=== PATIENT | male | born 1970 | race African-American/Black ===

== ENCOUNTER 2017-07-17 15:23 | Observation (INO) | payer BC ==
[2017-07-17] MEDS ORDERED: LIDOCAINE 4%/TETRACAINE 0.5%/EPI 0.18% 5 ML TOPICAL SOLN TOP ONE (16:55)
[2017-07-17] MEDS ORDERED: IBUPROFEN 800 MG TABLET PO ONE (16:55)
[2017-07-17] MEDS ORDERED: ACETAMINOPHEN 325 MG TABLET PO ONE (16:55)
--- NOTE | 2017-07-17 16:57 | ER Document Report ---
HPI - HPI Patient complains to provider of: left arm abscess Onset: Other - 3 days Onset/Duration: Worse Pain Level: 5 Context: 47-year-old male used IV heroin 3 days ago missed the vein and developed an abscess. He tried to cut it himself and no pus came out. No fever or chills. No body aches. No history of MRSA Associated Symptoms: None Relieved by: Denies Similar symptoms previously: No Recently seen / treated by doctor: No - ROS ROS below otherwise negative: Yes Systems Reviewed and Negative: Yes All other systems reviewed and negative Past Medical History - General Information source: Patient - Social History Smoking Status: Current Every Day Smoker Frequency of alcohol use: None Drug Abuse: Cocaine - smokes, Heroin - IV, Marijuana Lives with: Family Family History: Reviewed & Not Pertinent - Medical History Medical History: Negative Past Surgical History: Reports: Hx Orthopedic Surgery - left leg Vertical Provider Document - CONSTITUTIONAL Agree With Documented VS: Yes Exam Limitations: No Limitations - INFECTION CONTROL TRAVEL OUTSIDE OF THE [place] IN LAST 30 DAYS: No - HEENT HEENT: Normocephalic - NECK Neck: Supple - RESPIRATORY Respiratory: Breath Sounds Normal, No Respiratory Distress O2 Sat by Pulse Oximetry: 95 - CARDIOVASCULAR Cardiovascular: Regular Rate, Regular Rhythm - MUSCULOSKELETAL/EXTREMETIES Musculoskeletal/Extremeties: Tender - 7 cm distal volar left upper arm fluctuant abscess with surrounding cellulitis, Edema - NEURO Level of Consciousness: Awake, Alert, Appropriate Motor/Sensory: No Motor Deficit, No Sensory Deficit - DERM Integumentary: Abscess Course - Re-evaluation Re-evalutation: 07/17/17 17:[address] Domingo who looked at the wound and states that the general surgeon should be involved. I have spoken with Dr. Navarro who stated to make the patient n.p.o. and give IV antibiotics and IV fluid and he will come see the patient in the ED. 07/17/17 17:59 dr salinas here, pt admits to smoking cocaine. - Vital Signs Vital signs: Temp Pulse Resp BP Pulse Ox 98.6 F 92 18 135/85 H 95 07/17/17 15:44 07/17/17 15:44 07/17/17 15:44 07/17/17 15:44 07/17/17 15:44 Discharge - Discharge Clinical Impression: distal left upper arm abscess, IV drug abuse Admitting Provider: Surgicalist Unit Admitted: OR
[2017-07-17] MEDS ORDERED: AMPICILLIN SOD/SULBACTAM 3 GM VIAL IV ONE (17:35)
[2017-07-17] MEDS ORDERED: NORMAL SALINE 1000 ML 1,000 ML IV ONE ×2 (17:44→18:00)
[2017-07-17] MEDS ORDERED: CLINDAMYCIN 600 MG/D5W RTU 600 MG/50 ML RTUPB IV SCH (17:45)
[2017-07-17 18:36] LABS: HEMATOCRIT 39.5 % (37.9-51.0); MEAN CORPUSCULAR HEMOGLOBIN 27.9 pg (27.0-33.4); MEAN CORPUSCULAR HGB CONC 32.9 g/dL (32.0-36.0); MEAN CORPUSCULAR VOLUME 85 fl (80-97); PLATELET COUNT 273 10^3/uL (150-450); RED BLOOD COUNT 4.66 10^6/uL (4.35-5.55); RED CELL DISTRIBUTION WIDTH 12.4 % (11.5-14.0); WHITE BLOOD COUNT 22.6 10^3/uL (4.0-10.5)
[2017-07-17] MEDS ORDERED: PROMETHAZINE HCL INJ 25 MG/1 ML VIAL IV PRN ×2 (18:45)
[2017-07-17] MEDS ORDERED: DIPHENHYDRAMINE HCL 50 MG/ML VIAL IV PRN (18:45)
[2017-07-17] MEDS ORDERED: FENTANYL CITRATE INJ/PF 100 MCG/2 ML AMPUL IV PRN ×3 (18:45)
[2017-07-17 18:51] LABS: ABSOLUTE LYMPHOCYTES# (MANUAL) 0.5 10^3/uL (0.5-4.7); ABSOLUTE MONOCYTES # (MANUAL) 1.4 10^3/uL (0.1-1.4); ABSOLUTE NEUTROPHILS# (MANUAL) 20.8 10^3/uL (1.7-8.2); BAND NEUTROPHILS % (MANUAL) 8 % (3-5); BASOPHILS % (MANUAL) 0 % (0-2); EOSINOPHILS % (MANUAL) 0 % (0-6); LYMPHOCYTES % (MANUAL) 2 % (13-45); MONOCYTES % (MANUAL) 6 % (3-13); SEGMENTED NEUTROPHILS % (MAN) 84 % (42-78); TOTAL CELLS COUNTED 100
[2017-07-17 18:53] LABS: HYPOCHROMASIA SLIGHT; PLATELET CLUMPS PRESENT; PLATELET COMMENT ADEQUATE
[2017-07-17 18:55] LABS: ALANINE AMINOTRANSFERASE 33 U/L (21-72); ALBUMIN 3.7 g/dL (3.5-5.0); ALKALINE PHOSPHATASE 73 U/L (38-126); ANION GAP 10 (5-19); ASPARTATE AMINO TRANSFERASE 15 U/L (17-59); BILIRUBIN,DIRECT 0.3 mg/dL (0.0-0.4); BILIRUBIN,TOTAL 1.1 mg/dL (0.2-1.3); BLOOD UREA NITROGEN 16 mg/dL (7-20); CALCIUM 9.2 mg/dL (8.4-10.2); CARBON DIOXIDE 27 mmol/L (22-30); CHLORIDE 99 mmol/L (98-107); GLUCOSE 108 mg/dL (75-110); POTASSIUM 3.9 mmol/L (3.6-5.0); SODIUM 135.6 mmol/L (137-145); TOTAL PROTEIN 6.6 g/dL (6.3-8.2)
[2017-07-17] MEDS ORDERED: LIDOCAINE 0.5% INJ-PF (5 MG/ML) 50 ML SDV ONE (19:06)
[2017-07-17] MEDS ORDERED: BUPIVACAINE HCL 0.25 % INJ/PF (2.5 MG/1 ML) 30 ML VIAL ONE (19:06)
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
[2017-07-17] MEDS ORDERED: DEXMEDETOMIDINE INJ 80 MCG/20 ML VIAL IV ONE (19:16)
[2017-07-17] MEDS ORDERED: KETAMINE HCL INJ 500 MG/10 ML VIAL ONE (19:16)
[2017-07-17] MEDS ORDERED: MIDAZOLAM 2 MG/2 ML INJ ONE (19:16)
[2017-07-17] MEDS ORDERED: KETOROLAC TROMETHAMINE 10 MG TABLET PO PRN (19:59)
[2017-07-17] MEDS ORDERED: ONDANSETRON HCL INJ/PF 4 MG/2 ML SDV IV PRN (19:59)
--- NOTE | 2017-07-17 20:04 | Operative Report ---
Operative Report DATE OF SURGERY: 07/17/17 PREOPERATIVE DIAGNOSIS: Large left antecubital fossa abscess POSTOPERATIVE DIAGNOSIS: Same OPERATION: Excisional drainage, irrigation, packing left antecubital fossa abscess SURGEON: LITA MCKENZIE ANESTHESIA: LMAC TISSUE REMOVED OR ALTERED: Pus and nonviable skin COMPLICATIONS: None ESTIMATED BLOOD LOSS: 10 cc INTRAOPERATIVE FINDINGS: See below PROCEDURE: The patient was taken to the main operating room where appropriate level of LMAC anesthesia was induced using Precedex, Versed, ketamine. The left arm is abducted, prepped and draped in sterile fashion Surgical plan surgical timeout were conducted. Approximately 6 cm long transverse incision was made proximal to the antecubital crease. Copious quantities of pus were evacuated, approximately 100 cc. Material sent for Gram stain culture and sensitivity. A ellipse of skin was excised with a #10 blade to allow easy access to the abscess cavity. The smell was anaerobic in nature. Loculations above and below the transverse incision were broken up with index finger. The cephalic vein was sclerotic, and was ligated proximally and distally and divided. The infection was essentially confined to the deep subcutaneous space above the biceps brachii muscle and going towards the brachial radialis distally. The infection also extended under the skin flap medially and distally. Wound irrigated with saline 1 L then iodoform packing 1/2 inch packed into the deep subcutaneous space proximally and distally in relation to the transverse incision. Patient tolerated procedure well 4 x 4's and Kerlix applied. He was taken to recovery in stable condition.
[2017-07-17] MEDS: OXYCODONE-ACETAMINOPHEN 5-325 MG TABLET PO PRN (21:54)
[2017-07-17] MEDS: CEFAZOLIN 2 GM/D5W RTU 2 GM/50 ML RTUPB IV SCH (21:55)
[2017-07-17] MEDS: CLINDAMYCIN 600 MG/D5W RTU 600 MG/50 ML RTUPB IV SCH (23:00)
[2017-07-18] MEDS: OXYCODONE-ACETAMINOPHEN 5-325 MG TABLET PO PRN ×4 (03:12→21:06)
[2017-07-18] MEDS: CEFAZOLIN 2 GM/D5W RTU 2 GM/50 ML RTUPB IV SCH ×3 (05:39→21:07)
[2017-07-18] MEDS: KETOROLAC TROMETHAMINE INJ/PF 30 MG/1 ML SDV IV PRN ×2 (05:50→09:36)
[2017-07-18] MEDS ORDERED: KETOROLAC TROMETHAMINE INJ/PF 30 MG/1 ML SDV IV PRN (08:45)
[2017-07-18] MEDS: CLINDAMYCIN 600 MG/D5W RTU 600 MG/50 ML RTUPB IV SCH ×2 (08:46→18:00)
[2017-07-18] MEDS: DOCUSATE SODIUM 100 MG CAPSULE PO SCH ×2 (08:47→15:53)
--- NOTE | 2017-07-18 11:37 | PDOC PROGRESS REPORT ---
Subjective Progress Note for:: 07/18/17 Reason For Visit: LEFT ARM ABSCESS patient states his left arm feels better; had some pain last night Physical Exam Vital Signs: Temp Pulse Resp BP Pulse Ox 98.1 F 74 16 102/56 L 100 07/18/17 01:27 07/18/17 03:09 07/18/17 01:27 07/18/17 03:09 07/18/17 03:09 Intake & Output 07/17/17 07/18/17 07/19/17 05:59 06:59 06:59 Intake Total Output Total Balance Weight General appearance: PRESENT: no acute distress Musculoskeletal exam: PRESENT: other - Left arm examined. Left hand and wrist intact. Dressing change, packing removed wound repacked by nursing staff. No foul smell pus etc. Assessment & Plan - Diagnosis (1) Abscess of arm, left Is this a current diagnosis for this admission?: Yes Plan: 1 day status post incision drainage debridement and packing, tolerated dressing change; Septic source control achieved Plan: 1. Continue pain management, intravenous antibiotics today 2. Consider discharge home later today or tomorrow with local wound care, and p.o. antibiotics (2) Smoker Is this a current diagnosis for this admission?: Yes (3) Heroin abuse Is this a current diagnosis for this admission?: Yes (4) Cocaine abuse Is this a current diagnosis for this admission?: Yes
[2017-07-18] MEDS ORDERED: KETOROLAC TROMETHAMINE 10 MG TABLET ONE (19:48)
[2017-07-19] MEDS: CLINDAMYCIN 600 MG/D5W RTU 600 MG/50 ML RTUPB IV SCH ×2 (01:02→11:33)
[2017-07-19] MEDS: CEFAZOLIN 2 GM/D5W RTU 2 GM/50 ML RTUPB IV SCH (06:28)
[2017-07-19] MEDS: OXYCODONE-ACETAMINOPHEN 5-325 MG TABLET PO PRN ×2 (06:50→12:52)
--- NOTE | 2017-07-19 08:00 | Physician Advisory Note ---
Physician Advisor ProgressNote .: [facility] I have reviewed the medical record for this patient. Physician Advisor Statement: Please make it explicit in documentation whether pt: 1. Had "possible sepsis, ruled out", or 2. Had "early sepsis, present on admission, due to abscess, evidenced by ___, with acute [organ dysfunction] due to sepsis" - Pt did have HR 92 & WBC 22.6 on arrival, but tachycardia not persistent, no hypotension, no encephalopathy/hypoxemia/thrombocytopenia/PIPER/liver dysfn.... STatus: appropriately Obs to start. If not clinically safe for d/c today, please document ongoing clinical issues/concerns. Thanks! CK
[2017-07-19] MEDS: DOCUSATE SODIUM 100 MG CAPSULE PO SCH (11:32)
[2017-07-19] MEDS: KETOROLAC TROMETHAMINE INJ/PF 30 MG/1 ML SDV IV PRN (12:52)
[2017-07-19 15:25] VITALS: BP 143/78
--- NOTE | 2017-08-04 19:29 | DISCHARGE SUMMARY E ---
Discharge Summary NAME: KELLEN COLEMAN : 1970 AGE: 47Y ADMITTED: 07/17/2017 DISCHARGED: 07/19/2017 FINAL DIAGNOSIS: 1. Abscess of the left antecubital fossa on the deep subcu layer from about the biceps brachi muscle going to the brachioradialis distally. 2. History of opioid use. 3. Early sepsis due to the abscess, evidenced by markedly elevated white count of 22.6 with 84 segmenters and 8 bands with a low-grade fever of 98.6. He did have a heart rate of 92 on admission. HOSPITAL COURSE: Patient immediately underwent incision and drainage of left antecubital abscess done by Dr. Navarro. This was quite deep, down to the subcutaneous layer, going through the brachioradialis distally and just above the biceps brachii muscle. Procedure done by Dr. Navarro under local MAC. Postoperatively, patient continued intravenous antibiotics and wound packing was then removed and then repacked on 07/19/17. He was then discharged somewhat improved. DISCHARGE INSTRUCTIONS: Continue the p.o. antibiotics with clindamycin. He will be followed up in the wound care center in the next week. DICTATING PHYSICIAN: NANY SALDAÑA M.D. [id number] PHY#: [id number] ID: [id number] JOB#: [id number] ACCT: [id number] cc:Bry PAULA M.D. >
== END 2017-07-19 15:24 | disposition home health service (06) ==
LOC: ER 15:23 → EH 18:24 → 2N 21:08 → 3N 07-18 01:20
PROVIDERS: ATTEND Surgery
PROC: 0J9F0ZZ Drainage of Left Upper Arm Subcutaneous Tissue and Fascia, Open Approach (ICD-10-PCS; principal; 2017-07-17 19:50)
DX: L02.414 Cutaneous abscess of left upper limb (principal); A41.9 Sepsis, unspecified organism; F17.200 Nicotine dependence, unspecified, uncomplicated; F14.10 Cocaine abuse, uncomplicated; F11.10 Opioid abuse, uncomplicated; F12.10 Cannabis abuse, uncomplicated
CPT/HCPCS: 36415; 400; 80053; 85025; 87070; 87075; 87077; 87186; 87205; 96365; 99284; A6266; G0378; J0295; J0690; J1885; J2250; J3490; J7030

== ENCOUNTER 2018-09-16 12:16 | Emergency (ER) | payer BC ==
[2018-09-16 12:26] VITALS: BP 145/99
[2018-09-16] MEDS ORDERED: LIDOCAINE 1%/EPINEPHRINE INJ 20 ML VIAL INJ ONE (12:34)
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
[2018-09-16] MEDS ORDERED: BACITRACIN ZINC OINTMENT 15 GM TP ONE (13:37)
== END 2018-09-16 14:14 | disposition home or self-care (01) ==
LOC: ER 12:16
DX: S51.811A Laceration without foreign body of right forearm, initial encounter (principal); W22.09XA Striking against other stationary object, initial encounter; Z88.6 Allergy status to analgesic agent; Z87.891 Personal history of nicotine dependence
CPT/HCPCS: 99283; 12004; J3490 ×2

== ENCOUNTER 2019-03-17 00:21 | Emergency (ER) | payer BC ==
[2019-03-17 00:33] VITALS: BP 151/88
[2019-03-17 00:47] LABS: ABSOLUTE BASOPHILS # (AUTO) 0.1 10^3/uL (0.0-0.2); ABSOLUTE EOSINOPHILS # (AUTO) 0.1 10^3/uL (0.0-0.6); ABSOLUTE LYMPHOCYTES (AUTO) 3.1 10^3/uL (0.5-4.7); ABSOLUTE MONOCYTES (AUTO) 1.1 10^3/uL (0.1-1.4); ABSOLUTE NEUT (AUTO) 6.3 10^3/uL (1.7-8.2); EOSINOPHILS % (AUTO) 1.2 % (0-6); HEMATOCRIT 35.7 % (37.9-51.0); HEMOGLOBIN 11.7 g/dL (13.5-17.0); LYMPHOCYTES % (AUTO) 28.7 % (13-45); MEAN CORPUSCULAR HEMOGLOBIN 28.7 pg (27.0-33.4); MEAN CORPUSCULAR HGB CONC 32.9 g/dL (32.0-36.0); MEAN CORPUSCULAR VOLUME 87 fl (80-97); MONOCYTES % (AUTO) 10.3 % (3-13); PLATELET COUNT 180 10^3/uL (150-450); RED CELL DISTRIBUTION WIDTH 13.6 % (11.5-14.0); SEGMENTED NEUTROPHILS % (AUTO) 58.8 % (42-78); TOTAL CELLS COUNTED % (AUTO) 100 %; WHITE BLOOD COUNT 10.7 10^3/uL (4.0-10.5)
[2019-03-17 01:00] LABS: INTERNATIONAL RATION (INR) 1.12; PROTHROMBIN TIME 14.5 SEC (11.4-15.4)
[2019-03-17 01:02] LABS: ALBUMIN 3.6 g/dL (3.5-5.0); ALKALINE PHOSPHATASE 133 U/L (38-126); ANION GAP 10 (5-19); ASPARTATE AMINO TRANSFERASE 291 U/L (17-59); BILIRUBIN,DIRECT 0.3 mg/dL (0.0-0.4); BILIRUBIN,TOTAL 1.1 mg/dL (0.2-1.3); BLOOD UREA NITROGEN 16 mg/dL (7-20); CALCIUM 8.7 mg/dL (8.4-10.2); CARBON DIOXIDE 25 mmol/L (22-30); CHLORIDE 104 mmol/L (98-107); CREATINE KINASE 310 U/L (55-170); GLUCOSE 155 mg/dL (75-110); POTASSIUM 3.3 mmol/L (3.6-5.0); TOTAL PROTEIN 6.9 g/dL (6.3-8.2)
[2019-03-17 01:21] LABS: CREATINE KINASE MB 3.51 ng/mL (<4.55); TROPONIN I 0.012 ng/mL
[2019-03-17 01:36] LABS: APPEARANCE,URINE SLIGHTLY-CLOUDY; BILIRUBIN,URINE NEGATIVE (NEGATIVE); COLOR,URINE AMBER; GLUCOSE, URINE NEGATIVE (NEGATIVE); KETONES,URINE NEGATIVE (NEGATIVE); LEUKOCYTE ESTERASE,URINE SMALL (NEGATIVE); NITRITE,URINE NEGATIVE (NEGATIVE); PROTEIN,URINE 30 mg/dL (NEGATIVE); URINE SPECIFIC GRAVITY 1.026
--- NOTE | 2019-03-17 01:47 | RADIOLOGY REPORT (SQ) ---
CLINICAL HISTORY: CP COMPARISON: None. 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 Lungs are clear without consolidation, atelectasis, mass or edema. There is no pleural effusion. There is no pneumothorax. There are no acute osseous findings. IMPRESSION: Clear lungs.
[2019-03-17] MEDS ORDERED: PROMETHAZINE HCL INJ 25 MG/1 ML VIAL IM ONE (03:28)
[2019-03-17] MEDS ORDERED: NORMAL SALINE 1000 ML 1,000 ML IV ONE ×2 (03:28)
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
--- NOTE | 2019-03-18 22:04 | EKG REPORT ---
SEVERITY:- NORMAL ECG - SINUS RHYTHM : Confirmed by: Leobardo Bell 18-Mar-2019 22:03:24
== END 2019-03-17 05:11 | disposition left against medical advice (07) ==
LOC: ER 00:21
DX: F19.10 Other psychoactive substance abuse, uncomplicated (principal); M79.10 Myalgia, unspecified site; R07.9 Chest pain, unspecified
CPT/HCPCS: 93005; 99281; 96360; 36415; 82553; 82550; 85025; 85610; 80053; 81001; 84484; 71046; 93010; J7030